=== PATIENT | male | born 1980 | race Caucasian/White ===

== ENCOUNTER → 2019-04-09 14:36 | Outpatient (CLI) | payer OTHER, SELFPAY ==
--- NOTE | 2019-04-09 14:39 | DI.RAD.S_ITS ---
PROCEDURE: XR SHOULDER RT MIN 2V INDICATIONS: Thoracic strain, lumbar strain, R shoulder pain. TECHNIQUE: 3 views of the shoulder were acquired. COMPARISON: None. FINDINGS: Bones: No fractures or dislocations. No suspicious bony lesions. Visualized ribs appear intact. Soft tissues: No suspicious soft tissue calcifications. Visualized right hemithorax is clear. IMPRESSION: No fracture or dislocation. Dictated by: Bairon Miller M.D. on 04/09/2019 at 17:24 Approved by: Bairon Miller M.D. on 04/09/2019 at 17:25
--- NOTE | 2019-04-09 14:39 | DI.RAD.S_ITS ---
PROCEDURE: XR THORACIC SPINE 3V INDICATIONS: Thoracic strain, lumbar strain, R shoulder pain. TECHNIQUE: 3 views of the thoracic spine were acquired. COMPARISON: None. FINDINGS: Bones: No fractures or dislocations. No suspicious bony lesions. 12 pairs of ribs are noted, and appear intact where visualized. Soft tissues: No paravertebral stripe thickening. IMPRESSION: No acute osseous abnormality. Dictated by: Bairon Miller M.D. on 04/09/2019 at 17:20 Approved by: Bairon Miller M.D. on 04/09/2019 at 17:23
--- NOTE | 2019-04-09 14:39 | DI.RAD.S_ITS ---
PROCEDURE: XR LUMBAR SPINE 2-3V INDICATIONS: Thoracic strain, lumbar strain, R shoulder pain. TECHNIQUE: 3 views of the lumbar spine were acquired. COMPARISON: Same date thoracic spine radiographs. FINDINGS: Bones: 5 [id number] vertebrae are present. There is normal bony alignment. No vertebral body compression fractures. No suspicious bony lesions. Soft tissues: Overlying bowel gas pattern is normal. No suspicious soft tissue calcifications. IMPRESSION: No acute osseous abnormality. Dictated by: Bairon Miller M.D. on 04/09/2019 at 17:23 Approved by: Bairon Miller M.D. on 04/09/2019 at 17:24
== END ==
PROVIDERS: PCP Family Medicine; Visit Provider Family Medicine
DX: M25.511 Pain in right shoulder (principal); S29.019A Strain of muscle and tendon of unspecified wall of thorax, initial encounter; S39.012A Strain of muscle, fascia and tendon of lower back, initial encounter
CPT/HCPCS: 72072; 72100; 73030

== ENCOUNTER → 2019-07-06 12:18 | Outpatient (CLI) | payer OTHER, SELFPAY ==
--- NOTE | 2019-07-06 12:20 | DI.RAD.S_ITS ---
PROCEDURE: XR WRIST LT MIN 3V INDICATIONS: left wrist pain TECHNIQUE: 4 views of the wrist were acquired. COMPARISON: None. FINDINGS: Bones: No fractures or dislocations. No suspicious bony lesions. Multiple ossicles projecting at the ulnar styloid although radiographically these appear nonacute. Differential includes loose bodies. First CMC and triscaphe joint degeneration Scaphoid view: No fracture identified Soft tissues: No suspicious soft tissue calcifications. IMPRESSION: No definite acute fracture. If the patient's pain or other symptoms persist, consider further evaluation with MRI Multiple ossicles project adjacent the ulnar styloid however these appear chronic. Please correlate clinically. Dictated by: George Dumont M.D. on 07/06/2019 at 15:40 Approved by: George Dumont M.D. on 07/06/2019 at 15:42
== END ==
PROVIDERS: PCP Family Medicine; Visit Provider Nurse Practitioner Family
DX: M25.532 Pain in left wrist (principal); M18.12 Unilateral primary osteoarthritis of first carpometacarpal joint, left hand
CPT/HCPCS: 73110

== ENCOUNTER 2020-07-18 08:41 | Emergency (ER) | payer OTHER, SELFPAY ==
[2020-07-18 08:52] VITALS: BP 145/90; PULSE 69; RESP 18; TEMP 36.5; O2SAT 97; BMI 29.2
--- NOTE | 2020-07-18 09:01 | ED_ITS ---
HPI - Headache General Chief Complaint: Headache Stated Complaint: possible exposure to covid/bad cough since tue Time Seen by Provider: 07/18/20 08:52 Source: patient Mode of arrival: Ambulatory Limitations: no limitations History of Present Illness HPI Narrative: This is a 40-year-old male who comes with exposure to possible COVID. 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 Patient developed symptoms on Tuesday, 3 days ago with cough which has been productive with yellowish sputum. Patient has not had fevers that he is aware of but has had chills starting today. Some mild nausea. No vomiting. No chest pain except when he is coughing hard. He does not have any shortness of breath. No other GI or urinary symptoms. He has been self isolating. He does take lisinopril for hypertension and a antidepressant. He was smoking a cigar daily until recently. Related Data Home Medications Medication Instructions Recorded Confirmed cholecalciferol (vitamin D3) 25 1,000 unit PO DAILY 12/26/18 07/16/20 mcg (1,000 unit) capsule glucosamine marcelino dipot-chond marcelino tab PO tab 12/26/18 07/16/20 sod-C-Mn 750 mg-600 mg-99 mg-5 mg tablet Previous Rx's Medication Instructions Recorded lisinopril 20 mg tablet 20 mg PO DAILY #90 tab 12/26/18 lidocaine 5 % topical patch 1 patch TOP DAILY #15 each 04/22/20 sertraline 100 mg tablet 100 mg PO DAILY #90 tab 04/22/20 albuterol sulfate 2 inh INHALATION Q4H PRN #1 ea 07/18/20 benzonatate [Tessalon Perles] 100 mg PO Q6H PRN #20 cap 07/18/20 Allergies Allergy/AdvReac Type Severity Reaction Status Date / Time hydrocodone [HYDROCODONE] Allergy Unknown Verified 07/16/20 13:58 Review of Systems Review of Systems ROS Unobtainable: All systems reviewed & are unremarkable except as noted in HPI and below Patient History Medical History Anxiety (~2001) Back stiffness Carpal tunnel syndrome (~2001) Cervical somatic dysfunction Chronic back pain (~2003) Chronic right shoulder pain (~1999) Cranial somatic dysfunction Depression (~2001) Fractures (~2008) Headache (~1998) Hearing loss Hemorrhoids (~2004) History of posttraumatic stress disorder (PTSD) (~1998) Hypertension (~1999) Lumbar region somatic dysfunction Neck stiffness Pelvic somatic dysfunction Right carpal tunnel syndrome Sacral region somatic dysfunction Sacroiliac joint stiffness Segmental and somatic dysfunction of abdomen and other regions Sleep apnea (~2011) Somatic dysfunction of lower extremity Strain of right deltoid muscle Substance abuse (~2001) Thoracic region somatic dysfunction Tinnitus (~2004) Upper extremity somatic dysfunction Surgical History Anesthesia H/O wisdom tooth extraction (~1995) H/O: knee surgery (~2002) History of ankle surgery (~2010) Family History (Updated 03/31/20 @ 19:52 by Cande Nair) Mother Overdose Grandfather History of heart disease Hypertension Mental health problem Stroke Grandmother Cancer Social History Smoking Status: Current some day smoker Tobacco: How many years used: 27 alcohol intake: current Smoking Status: Current some day smoker tobacco type: cigars alcohol intake frequency: a few times a month Substance Use Type: does not use Exam Narrative Exam Narrative: GENERAL: Alert and oriented x three, well-nourished male in mild distress. HEENT: Head normocephalic, atraumatic, EOMI, pupils reactive, face symmetric, moist mucous membranes NECK: Supple, full range of motion CARDIOVASCULAR: Regular rate and rhythm without murmurs, rubs or gallops. No tachycardia noted. RESPIRATORY: Breath sounds equal bilaterally slightly decreased bilaterally, no wheezes rales or rhonchi. No tachypnea accessory muscle use. Patient does have significant cough in the room. Nonproductive in the room. ABDOMEN: Soft, nontender. Normoactive bowel sounds all 4 quadrants. No guarding or rebound, rigidity, no mass : No CVA tenderness EXTREMITIES: Normal range of motion, no clubbing or edema. Neurovascularly intact NEUROLOGICAL: Cranial nerves II through XII grossly intact. Moving all extremities SKIN: Warm, dry, no petechiae, no rashes or lesions. Initial Vital Signs Initial Vital Signs: Vital Signs Temperature 97.7 F 07/18/20 08:52 Pulse Rate 69 07/18/20 08:52 Respiratory Rate 18 07/18/20 08:52 Blood Pressure 145/90 H 07/18/20 08:52 Pulse Oximetry 97 07/18/20 08:52 Course Orders Ordered: ED Orders 07/18/20 09:09 XR chest 1V Stat 07/18/20 09:15 COVID19 Stat Reevaluation(s) Reevaluation #1: Patient updated, chest x-ray is negative, coronavirus 19 test is negative. Patient recommended to continue to self isolate. Discussed doing and antitussives. He had bug crawling on him like sensation with narcotics in the so will defer any codeine and use Tessalon Perles. Also offered an albuterol inhaler if he finds this helpful. He did not have any wheezing on exam but some patients will have some bronchospasm. Chest x-ray being negative no plan to start antibiotics at this time but patient is to return if he is feeling worse. Time: 10:18 Vital Signs Vital signs: Vital Signs - 8 hr 07/18/20 08:52 07/18/20 10:25 Temperature 97.7 F Pulse Rate 69 69 Respiratory Rate 18 16 Blood Pressure 145/90 H 122/75 Pulse Oximetry 97 98 MDM - Headache Lab Data Labs: Lab Results 07/18/20 Range/Units 09:15 COVID-19 PCR Negative (Negative) Imaging Data Chest x-ray: Radiologist's Impression: [address] [id number] ReportSigned Patient: Lex Soler EMR#: [id number]: [id number]:[id number]/Sex: 40 / MDate of Service: 07/18/20Loc: EDAccession Number: [id number] Procedure: XR chest 1V Ordering Provider: Enma Brody D.O. PROCEDURE: XR CHEST 1V INDICATIONS: flu-like symptoms TECHNIQUE: One view of the chest was acquired. COMPARISON: None. FINDINGS: Surgical changes and devices: None. Lungs and pleura: Lungs are clear. No pleural effusions or pneumothorax. Mediastinum: Mediastinal contours appear normal. Heart size is normal. Bones and chest wall: No suspicious bony lesions. Overlying soft tissues appear unremarkable. IMPRESSION: Portable chest within normal limits. No focal infiltrates are seen. If there is clinical concern for a developing pulmonary process, a short-term followup chest series (with PA and lateral views, performed in deep inspiration) is suggested for further evaluation. Dictated by: Shon Alvarez M.D. on 07/18/2020 at 8:28 Approved by: Shon Alvarez M.D. on 07/18/2020 at 8:29 Discharge Plan Departure Patient Disposition: Home Clinical Impression: Bronchitis Instructions: Acute Bronchitis Activity Restrictions/Additional Instructions: Your coronavirus 19 test today is negative. I would recommend continuing to self isolate. Take cough medicine as prescribed. You may use inhaler 1-2 puffs every 4 hours as needed if you find this helpful. You may also take Tylenol and/or ibuprofen as needed for symptoms. *What to do: * per recommendations from the CDC and the [facility] Department of Health * stay home except to get medical care. Restrict activities outside your home, except for getting medical care. Do not go to work, school, or public areas. Avoid using public transportation, ride sharing, or taxis. * separate yourself from other people in your home. * call ahead before visiting your doctor * Wear a face mask * Cover your coughs and sneezes * Clean your hands often * Avoid sharing household items * Clean all high-touch services every day * Monitor your symptoms and seek prompt medical attention if your illness is worsening, particularly with difficulty in breathing. Discussed continuing home isolation * for individuals with symptoms who are confirmed or suspected cases of COVID-19 and are directed to care for themselves at home, discontinue home isolation under the following conditions: 1. At least 72 hours have passed since recovery, defined as resolution of fever without the use of fever reducing medications, and improvement in respiratory symptoms (cough, shortness of breath) AND, 2. At least 7 days have passed since symptoms 1st appeared Individuals with laboratory confirmed COVID-19 who have not had any symptoms may discontinue home isolation when at least 7 days have passed since the date of their 1st COVID-19 diagnostic test and have had no subsequent illness Prescriptions: New benzonatate [Tessalon Perles] 100 mg capsule 100 mg PO Q6H PRN (Reason: cough) Qty: 20 RF: 0 albuterol sulfate 90 mcg/actuation aerosol powdr breath activated 2 inh inhalation Q4H PRN (Reason: shortness of breath or wheezing) Qty: 1 RF: 0 No Action cholecalciferol (vitamin D3) 1,000 unit capsule 1,000 unit PO DAILY RF: 0 glucosam marcelino uji-tvyopfhpj-C-Mn 422-274-49-5 mg tablet PO RF: 0 lisinopril 20 mg tablet 20 mg PO DAILY Qty: 90 RF: 0 sertraline [Zoloft] 100 mg tablet 100 mg PO DAILY Qty: 90 RF: 1 lidocaine 5 % adhesive patch,medicated 1 patch TOP DAILY Qty: 15 RF: 1 Referrals: Enrique Leija DO [Primary Care Provider] -
--- NOTE | 2020-07-18 09:09 | DI.RAD.S_ITS ---
PROCEDURE: XR CHEST 1V INDICATIONS: flu-like symptoms TECHNIQUE: One view of the chest was acquired. COMPARISON: None. FINDINGS: Surgical changes and devices: None. Lungs and pleura: Lungs are clear. No pleural effusions or pneumothorax. Mediastinum: Mediastinal contours appear normal. Heart size is normal. Bones and chest wall: No suspicious bony lesions. Overlying soft tissues appear unremarkable. IMPRESSION: Portable chest within normal limits. No focal infiltrates are seen. If there is clinical concern for a developing pulmonary process, a short-term followup chest series (with PA and lateral views, performed in deep inspiration) is suggested for further evaluation. Dictated by: Shon Alvarez M.D. on 07/18/2020 at 8:28 Approved by: Shon Alvarez M.D. on 07/18/2020 at 8:29
[2020-07-18 09:57] LABS: COVID19 -Nasal RAPID Negative (Negative)
[2020-07-18 10:25] VITALS: BP 122/75; PULSE 69; RESP 16; O2SAT 98
== END 2020-07-18 10:32 | disposition home or self-care (01) ==
PROVIDERS: Emergency Provider Emergency Medicine; PCP Family Medicine
DX: J40 Bronchitis, not specified as acute or chronic (principal); R05 Cough; R11.0 Nausea
CPT/HCPCS: 71045; 87635; 99283

== ENCOUNTER 2021-04-17 15:56 | Emergency (ER) | payer OTHER, SELFPAY ==
[2021-04-17 15:50] VITALS: BP 167/86; PULSE 71; RESP 24; TEMP 36.7; O2SAT 98; BMI 30.9
--- NOTE | 2021-04-17 16:05 | DI.RAD.S_ITS ---
PROCEDURE: XR CLAVICLE RT INDICATIONS: right shoulder pain TECHNIQUE: 2 views of the clavicle were acquired. COMPARISON: None. FINDINGS: Bones: Comminuted fracture of the right humeral head and neck. No suspicious bony lesions. Mild right acromioclavicular joint osteoarthritis. Soft tissues: No suspicious soft tissue calcifications. IMPRESSION: Proximal right humerus fracture. Dictated by: Nicolasa August MD, PhD on 04/17/2021 at 16:28 Approved by: Nicolasa August MD, PhD on 04/17/2021 at 16:29
--- NOTE | 2021-04-17 16:05 | DI.RAD.S_ITS ---
PROCEDURE: XR SHOULDER RT MIN 2V INDICATIONS: right shoulder pain TECHNIQUE: 3 comminuted proximal right humerus fracture. Three views of the shoulder were acquired. COMPARISON: [facility], CR, XR SHOULDER RT MIN 2V, 04/09/2019, 14:55. FINDINGS: Bones: Comminuted fracture of the right humeral head and neck. Soft tissues: No suspicious soft tissue calcifications. IMPRESSION: Comminuted proximal right humerus fracture. Dictated by: Nicolasa August MD, PhD on 04/17/2021 at 16:29 Approved by: Nicolasa August MD, PhD on 04/17/2021 at 16:31
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
[2021-04-17] MEDS: MORPHINE 2 MG/ML INJ IV (16:10)
--- NOTE | 2021-04-17 16:41 | DI.CT.S_ITS ---
PROCEDURE: CT UE RT WO CON INDICATIONS: proximal humerous fracture and? TECHNIQUE: Helical axial CT of the right proximal humerus was obtained and reconstructed in orthogonal planes COMPARISON: None. FINDINGS: There is a comminuted fracture of the proximal humerus extending through the proximal metaphysis and greater tuberosity. Minimal displacement of the greater tuberosity fracture fragment present. The articular surface is preserved. There is glenohumeral joint space narrowing. Scapula and clavicle are unremarkable. Mild degenerative changes noted involving the acromioclavicular joint. Overlying soft tissue swelling and edema present predominantly in the deltoid and adjacent fascial planes. Right lung apex is clear. No pneumothorax. IMPRESSION: Comminuted fracture of the proximal humerus involving the metaphysis and greater tuberosity. No evidence of intra-articular involvement. Approved by: Boom Rapp M.D. on 04/17/2021 at 16:46
[2021-04-17 17:00] VITALS: BP 145/98; PULSE 74; O2SAT 99
[2021-04-17] MEDS: MORPHINE 4 MG/ML INJ IV (17:07)
--- NOTE | 2021-04-17 17:29 | PC.NURSE ---
Pt reports pain at site of EMS start IV. IV removed per pt request. New access obtained on L forearm, 20g IV
[2021-04-17 17:30] VITALS: PULSE 81; RESP 20; O2SAT 98
[2021-04-17 18:31] VITALS: BP 137/89; PULSE 73; O2SAT 97
== END 2021-04-17 18:42 | disposition home or self-care (01) ==
PROVIDERS: Emergency Provider Physician Assistant; PCP Family Medicine
DX: S42.201A Unspecified fracture of upper end of right humerus, initial encounter for closed fracture (principal); V97.0XXA Occupant of aircraft injured in other specified air transport accidents, initial encounter; Y99.0 Civilian activity done for income or pay
CPT/HCPCS: 73000; 73030; 73200; 96374; 96376; 99284; 99285; J2270

== ENCOUNTER → 2021-09-16 08:21 | Outpatient (CLI) | payer OTHER, SELFPAY ==
--- NOTE | 2021-09-16 | DI.MRI.S_ITS ---
PROCEDURE: MR SHOULDER RT W CON INDICATIONS: Evaluation for pain after malunion TECHNIQUE: After the administration of 12 mL of dilute intra-articular Gadolinium contrast, oblique coronal T1 and T2 spin echo with fat saturation, oblique sagittal T1 spin echo with and without fat saturation, oblique sagittal T2 fast spin echo with fat saturation, axial T1 spin echo with fat saturation through the shoulder. COMPARISON: [facility], CT, CT UE RT WO CON, 04/17/2021, 17:23. [facility] [place], CR, XR SHOULDER 2+ VIEWS RIGHT, 08/24/2021, 11:16. FINDINGS: Image quality: Excellent. Rotator cuff: Mild T2 signal elevation diffusely throughout the supraspinatus and infraspinatus tendons at the humeral insertion sites, extending the musculotendinous junctions, indicating tendinopathy. Superimposed moderate grade intrasubstance and articular surface tearing of the anterior supraspinatus tendon at the humeral insertion site. Low-grade partial-thickness intrasubstance tearing of the mid and posterior supraspinatus, as well as the anterior infraspinatus tendons at the humeral insertion sites. Subscapularis demonstrates low-grade partial-thickness intrasubstance tearing superiorly at the humeral insertion site extending to the musculotendinous junction. No rotator cuff atrophy. Bones and bursae: Healed fracture deformity of the humeral head and neck is present. No bone marrow contusions nor acute fractures. Moderate acromioclavicular joint degeneration. The acromion demonstrates conventional anatomy, without an os acromiale. Capsule and soft tissues: The labrum and glenohumeral ligaments appear intact. The long head of the biceps tendon demonstrates normal location and partial-thickness tearing. The rotator interval appears normal, without fibrosis. The coracohumeral ligament is of normal thickness. No intra-articular bodies. IMPRESSION: 1. Supraspinatus and infraspinatus tendinopathy. 2. Superimposed moderate grade tearing of the anterior supraspinatus. Low-grade tearing of the remainder of the supraspinatus and anterior infraspinatus tendons. 3. Low-grade tearing of the subscapularis tendon. 4. Acromioclavicular joint osteoarthritis. 5. Partial thickness biceps tendon tear. Dictated by: Joleen Martinez M.D. on 09/16/2021 at 10:02 Approved by: Joleen Martinez M.D. on 09/16/2021 at 10:05
--- NOTE | 2021-09-16 | DI.RAD.S_ITS ---
PROCEDURE: FL SHOULDER INJECTION MR/CT RT INDICATIONS: Evaluation for pain after malunion COMPARISON: [facility] [place], CR, XR SHOULDER 2+ VIEWS RIGHT, 08/24/2021, 11:16. TECHNIQUE: The indications, alternatives, benefits, risks, and complications of the procedure were explained to the patient. Written informed consent was obtained and placed in the chart. The shoulder was examined fluoroscopically and a site for needle placement chosen for entry into the glenohumeral joint from an anterior approach. The skin was prepped and draped in a sterile fashion, and 1% lidocaine infiltrated from skin down to joint capsule. A spinal needle was inserted into the glenohumeral joint, and a small amount of iodinated contrast media injected to confirm intra-articular placement of the needle tip. This was followed by approximately 12 mL dilute solution of a gadolinium containing MR contrast agent. The needle was removed and a dressing was applied. The patient was given postprocedural instructions and sent to the MR suite for MR imaging. FINDINGS: A single fluoroscopic spot image demonstrates intra-articular location of injected iodinated contrast. IMPRESSION: Successful fluoroscopically guided administration of dilute Gadolinium solution into the shoulder joint for MR arthrogram. Dictated by: Nona Zheng M.D. on 09/16/2021 at 9:52 Approved by: Nona Zheng M.D. on 09/16/2021 at 9:53
== END ==
PROVIDERS: Referring Provider Orthopaedic Surgery; Visit Provider Orthopaedic Surgery
DX: S42.291D Other displaced fracture of upper end of right humerus, subsequent encounter for fracture with routine healing (principal); S46.111A Strain of muscle, fascia and tendon of long head of biceps, right arm, initial encounter; M19.011 Primary osteoarthritis, right shoulder; S46.011A Strain of muscle(s) and tendon(s) of the rotator cuff of right shoulder, initial encounter
CPT/HCPCS: 23350; 73222; 77002

== ENCOUNTER 2021-10-16 07:54 | Emergency (ER) | payer OTHER, SELFPAY ==
[2021-10-16] VITALS (12 sets, daily range): BP systolic 127–165; BP diastolic 74–100; PULSE 68–84; RESP 18–25; TEMP 36.6; O2SAT 94–100; BMI 29.8
--- NOTE | 2021-10-16 08:13 | ED.DIZZY ---
HPI - Dizziness General Chief Complaint: Dizziness Stated Complaint: dizzy spells 4 days Time Seen by Provider: 10/16/21 08:10 History of Present Illness HPI Narrative: Patient complains of dizziness for the past 4 days. Worse at nighttime. Worse with movement and positional changes. Occasional nausea. Occasionally has slight headache. No numbness tingling weakness. No slurred speech or facial droop. Patient denies any unusual stress in life. Patient is on blood pressure medication. Three weeks ago he states his blood pressure usually ran 120/70. 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 At nighttime his dizziness is worse. His diastolic has been elevated above 100. This morning dizziness persisted. He did have some memory lapse forgetting to pack his son's lunch. That is atypical for him. He is uncertain about family history of heart attack and strokes or high blood pressure. No chest pain no palpitations. No dyspnea. No black or bloody stools. Did have some blood pressure medication changes recently. They were concerned that his blood pressure was running too low. Related Data Home Medications Medication Instructions Recorded Confirmed cholecalciferol (vitamin D3) 25 1,000 unit PO DAILY 12/26/18 08/01/20 mcg (1,000 unit) capsule glucosamine marcelino dipot-chond marcelino tab PO tab 12/26/18 08/01/20 sod-C-Mn 750 mg-600 mg-99 mg-5 mg tablet Previous Rx's Medication Instructions Recorded lisinopril 20 mg tablet 20 mg PO DAILY #90 tab 12/26/18 lidocaine 5 % topical patch 1 patch TOP DAILY #15 each 04/22/20 sertraline 100 mg tablet (Zoloft) 100 mg PO DAILY #90 tab 04/22/20 albuterol sulfate 90 mcg/actuation 2 inh INHALATION Q4H PRN #1 ea 07/18/20 breath activated powder inhaler benzonatate 100 mg capsule 100 mg PO Q6H PRN #20 cap 07/18/20 (Tessalon Perles) hydroxyzine pamoate 25 mg capsule 25 mg PO BID PRN #60 cap 08/08/20 (Vistaril) oxycodone 5 mg capsule 5 mg PO TID PRN #20 cap 04/17/21 Allergies Allergy/AdvReac Type Severity Reaction Status Date / Time hydrocodone [HYDROCODONE] Allergy Unknown Verified 08/08/20 15:26 Review of Systems Review of Systems Narrative: GENERAL: Denies chills, fatigue, malaise, fever, sweats. HEENT: Denies sinus pain, ear pain, sore throat RESPIRATORY: Denies dyspnea, cough CARDIOVASCULAR: Denies chest pain, palpitations GASTROINTESTINAL: Denies nausea, vomiting, abdominal pain : Denies dysuria, frequency, hematuria MUSCULOSKELETAL: denies muscle or bony pain SKIN: Denies rash, skin lesions NEUROLOGIC: Denies weakness, numbness, positive for dizziness ROS Unobtainable: All systems reviewed & are unremarkable except as noted in HPI and below Patient History Medical History Anxiety (~2001) Back stiffness Carpal tunnel syndrome (~2001) Cervical somatic dysfunction Chronic back pain (~2003) Chronic right shoulder pain (~1999) Cranial somatic dysfunction Depression (~2001) Fractures (~2008) Ganglion cyst of dorsum of left wrist Headache (~1998) Hearing loss Hemorrhoids (~2004) History of posttraumatic stress disorder (PTSD) (~1998) Hypertension (~1999) Insomnia Lumbar region somatic dysfunction Neck stiffness Pelvic somatic dysfunction Posttraumatic stress disorder Right carpal tunnel syndrome Sacral region somatic dysfunction Sacroiliac joint stiffness Segmental and somatic dysfunction of abdomen and other regions Sleep apnea (~2011) Somatic dysfunction of lower extremity Strain of right deltoid muscle Substance abuse (~2001) Thoracic region somatic dysfunction Tinnitus (~2004) Upper extremity somatic dysfunction Surgical History Anesthesia H/O wisdom tooth extraction (~1995) H/O: knee surgery (~2002) History of ankle surgery (~2010) Family History Mother Overdose Grandfather History of heart disease Hypertension Mental health problem Stroke Grandmother Cancer Social History Smoking Status: Former smoker Tobacco: How many years used: 27 alcohol intake: current Smoking Status: Former smoker tobacco type: cigars alcohol intake frequency: a few times a month Substance Use Type: does not use Exam Narrative Exam Narrative: GENERAL: in no distress, not toxic not dyspneic HEAD: Normocephalic. EYES: Pupils equal round No scleral icterus. ENT: Mucous membranes moist. NECK: Trachea midline. No carotid bruit CARDIOVASCULAR: Regular rate and rhythm without murmurs RESPIRATORY: Clear to auscultation. Breath sounds equal bilaterally. No wheezes, rales, or rhonchi. GASTROINTESTINAL: Abdomen soft, non-tender EXTREMITIES: No gross deformities. BACK: No flank tenderness. NEURO: AOx4. 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 Negative pronator drift. Patient has steady gait in hallway unassisted. On [place] is unsteady with eyes closed. Increased dizziness with changes in horizontal gaze. Increased dizziness with getting up out of bed and standing up. SKIN: Warm and dry PSYCH: Not anxious, is cooperative Initial Vital Signs Initial Vital Signs: Vital Signs Pulse Rate 84 10/16/21 08:06 Blood Pressure 165/100 H 10/16/21 08:06 Pulse Oximetry 98 10/16/21 08:06 Course Course Course Narrative: No new issues during course of stay Orders Ordered: ED Orders 10/16/21 08:10 EKG-12 Lead Stat 10/16/21 08:24 Complete Blood Count AUTO DIFF Stat Comprehensive Metabolic Panel Stat Troponin I Stat 10/16/21 09:10 CT angio head and neck Stat 10/16/21 10:53 MR head/brain wo con Stat Discontinued Medications Sodium Chloride (Normal Saline 0.9%) 500 mls @ 1,000 mls/hr IV BOLUS ONE Stop: 10/16/21 08:39 Last Infusion: 10/16/21 10:00 Dose: 0 mls/hr Documented by: Admin: 10/16/21 08:37 Dose: 1,000 mls/hr Documented by: YG Meclizine HCl (Meclizine Hcl 12.5 Mg Tablet) 50 mg PO NOW ONE Stop: 10/16/21 08:19 Last Admin: 10/16/21 08:36 Dose: 50 mg Documented by: YG Reevaluation(s) Reevaluation #1: Blood pressure improved. 138/84. No blood pressure medication given. However no changes with 50 mg of Antivert. Still dizzy with changing position. No dizziness while lying still. Has been up and going to the bathroom. Still feeling dizzy when up and walking. Reviewed results with patient. So far laboratory studies and imaging are reassuring. 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 Likely blood pressure not related to dizziness. Patient still symptomatic with normal blood pressure here. They agree with follow[facility]up. [facility] I gave patient referral to Otolaryngology as possible source of dizziness, inner ear problem. No hearing changes or hearing loss. However balance center of the ear could be issue. Such as labyrinthitis. Appropriate for evaluation by ENT 1st. Patient not toxic. Return precautions reviewed with them. Time: 12:03 Consultations Consultation #1: Spoke with tele stroke neurologist, dr marshall, agrees with MRI without contrast and if normal patient can be discharged home and follow-up with neurology or with otolaryngology Time: 10:54 Vital Signs Vital signs: Vital Signs - 8 hr 10/16/21 08:06 10/16/21 08:12 10/16/21 08:30 Temperature 98 F Pulse Rate 84 82 81 Respiratory Rate 18 20 Blood Pressure 165/100 H 165/100 H 141/90 H Pulse Oximetry 98 97 98 10/16/21 09:00 10/16/21 09:19 10/16/21 09:30 Temperature Pulse Rate 82 72 74 Respiratory Rate 20 18 19 Blood Pressure 127/74 153/88 H Pulse Oximetry 98 100 99 10/16/21 10:00 10/16/21 10:30 10/16/21 11:21 Temperature Pulse Rate 70 76 79 Respiratory Rate 20 21 Blood Pressure 143/84 H 138/84 Pulse Oximetry 98 100 94 10/16/21 11:30 10/16/21 11:58 10/16/21 12:00 Temperature Pulse Rate 72 68 70 Respiratory Rate 24 25 H 19 Blood Pressure 130/85 Pulse Oximetry 99 98 98 MDM - Dizziness Differential Diagnosis Differential diagnosis: Likely benign paroxysmal positional vertigo, vertebral basilar insufficiency, cerebrovascular accident, acute vestibular neuronitis, transient cerebral ischemia and other (TIA/vertigo/hypertensive urgency) Lab Data Result diagrams: 10/16/21 08:24 10/16/21 08:24 Labs: Lab Results 10/16/21 10/16/21 Range/Units 08:24 08:24 WBC 8.5 (4.5-11.0) X10^3/uL RBC 5.02 (4.5-5.9) X10^6/uL Hgb 14.9 (13.5-17.5) g/dL Hct 43.8 (41-53) % MCV 87.4 (80-100) fL MCH 29.7 (26-34) PG MCHC 34.0 (30-36) % RDW 12.8 (11.6-14.8) % Plt Count 328 (150-400) X10^3/uL Neut % (Auto) 67.1 (50-75) % Lymph % (Auto) 20.6 L (25-40) % [place]k % (Auto) 8.7 (3-14) % Eos % (Auto) 3.3 (2-4) % Baso % (Auto) 0.3 (0-2) % Neut # (Auto) 5700 (9240-2997) /uL Lymph # (Auto) 1700 (4443-1531) /uL [place]k # (Auto) 700 (0-900) /uL Eos # (Auto) 300 (0-450) /uL Baso # (Auto) 0 (0-100) /uL Sodium 138 (137-145) mmol/L Potassium 4.1 (3.4-5.1) mmol/L Chloride 104 (98-107) mmol/L Carbon Dioxide 25 (22-32) mmol/L BUN 15 (9-20) mg/dL Creatinine 0.99 (0.66-1.25) mg/dL Estimated GFR > 60.0 (>60) mL/min BUN/Creatinine Ratio 15.2 (6-22) Glucose 107 H (70-100) mg/dL Calcium 9.6 (8.4-10.2) mg/dL Total Bilirubin 0.4 (0.2-1.3) mg/dL AST 35 (17-59) IU/L ALT 27 (<50) IU/L Alkaline Phosphatase 67 (38-126) U/L Troponin I < 0.012 (0.01-0.034) ng/mL Total Protein 8.2 (6.3-8.2) g/dL Albumin 4.9 (3.5-5.0) g/dL Globulin 3.3 (1.7-4.1) g/dL Albumin/Globulin Ratio 1.5 (1.0-2.8) Imaging Data CTA - brain/neck: Radiologist's Impression: [address] [address] [address] Scan Report Signed Patient: Lex Soler MR#: [id number] : 1980 Acct:[id number] Age/Sex: 41 / M Date of Service: 10/16/21 Loc: ED Accession Number: [id number] ?? Procedure: CT angio head and neck Ordering Provider: Zeus Gannon MD PROCEDURE:? CT ANGIO HEAD AND NECK ? INDICATIONS:? Dizziness/altered mental status ? TECHNIQUE:? Pre-contrast 4.5 mm thick sections acquired from the foramen magnum to the vertex.? After the administration of intravenous contrast, 1 mm thick sections acquired from the aortic arch through the [place].? Post-contrast 4.5 mm thick sections then re-acquired from the foramen magnum to the vertex.? 3-dimensional ufmnzvt-ryncmkzjm-amztnqnsur (MIP) and/or volume rendering reformats were acquired of the central intracranial vasculature and neck separately. ? COMPARISON:? None. ? FINDINGS:? Image quality:? Excellent.? ? BRAIN:? CSF spaces:? Ventricles are normal in size and shape.? Basal cisterns are patent.? No extra-axial fluid collections.? ? Brain:? No midline shift.? No intracranial bleeds or masses.? Silvestre-white matter interface appears intact.? ? Skull and face:? Calvarium and facial bones appear intact, without suspicious lesions.? Orbits appear normal.? ? Sinuses:? Sinuses and mastoids are clear.? ? HEAD CT ANGIOGRAPHY:? Anterior circulation:? Intracranial internal carotid arteries are normal in size and flow.? The flow within the paired anterior cerebral arteries is normal and symmetric.? The flow within the middle cerebral arteries is normal and symmetric.? The anterior communicating artery is seen.? No aneurysms are seen.? ? Posterior circulation:? Visualized portions of the vertebral arteries demonstrate normal caliber, and join to form a normal appearing basilar artery.? Flow within the posterior cerebral arteries is normal and symmetric.? No aneurysms are seen. ? Dural sinuses demonstrate normal postcontrast enhancement. ? ? NECK CT ANGIOGRAPHY:? Carotid system:? The great vessels demonstrate a conventional anatomy as they arise from the aortic arch.? The origins of the common carotid arteries appear patent.? The common carotid arteries demonstrate normal caliber and courses.? The bifurcation regions are both widely patent.? The internal carotid arteries demonstrate normal calibers and courses.? ? Posterior circulation:? The origins of the vertebral arteries both appear widely patent.? The more superior extracranial portions of both vertebral arteries also demonstrate normal courses and calibers.? They join to form a normal appearing basilar artery.? ? Soft tissues:? Visualized neck soft tissues demonstrate no suspicious abnormalities.? ? Bones:? No suspicious bony lesions.? Visualized cervical spine appears normally aligned.? IMPRESSION:? ? 1. No intracranial disease process. ? 2. No large vessel occlusion, vascular stenosis, vascular dissection or aneurysm. ? ? Any quantitative measurements of stenosis were performed using NASCET criteria.? ? ? Dictated by: Nicolasa August MD, PhD on 10/16/2021 at 9:44 ? ? Approved by: Nicolasa August MD, PhD on 10/16/2021 at 9:50 ? MRI brain: Radiologist's Impression: [place] [address] Magnetic Resonance Report Signed Patient: Lex Soler MR#: [id number] : 1980 Acct:[id number] Age/Sex: 41 / M Date of Service: 10/16/21 Loc: ED Accession Number: [id number] ?? Procedure: MR head/brain wo con Ordering Provider: Zeus Gannon MD PROCEDURE:? MR HEAD/BRAIN WO CON ? INDICATIONS:? Ataxia/dizziness/altered mental status ? TECHNIQUE:? Noncontrast axial T1 spin echo, axial T2 fast spin echo, sagittal and axial FLAIR, coronal T2 fast spin echo, axial gradient echo, axial diffusion and ADC through the brain.? ? COMPARISON:? [facility], CT, CT ANGIO HEAD AND NECK, 10/16/2021, 8:20. ? FINDINGS:? Image quality:? Excellent.? ? CSF Spaces:? Basal cisterns are patent.? No extra-axial fluid collections.? Ventricles are normal in size and shape.? ? Brain:? No intracranial masses or hemorrhage.? Silvestre/white matter interface is normal.? Brainstem appears normal.? Diffusion-weighted images demonstrate no acute ischemic insult.? No chronic ischemic insults.? Normal intravascular flow voids are present.? ? Skull and face:? Calvarium has normal marrow signal.? Orbits appear normal.? ? Sinuses:? Sinuses and mastoids are clear.? ? IMPRESSION:? No findings of acute or subacute infarction can be seen. ? No acute intracranial process is seen.? ? ? Dictated by: Shon Alvarez M.D. on 10/16/2021 at 10:44 ? ? Approved by: Shon Alvarez M.D. on 10/16/2021 at 10:45 ? ECG Data Interpretation: Normal sinus rhythm rate [address] elevation or depression MDM Narrative Medical decision making narrative: Appropriate for discharge home. Exam and laboratory studies and imaging are reassuring. I do review with tele stroke neurologist as well. Likely vertigo. Return precautions reviewed with patient and . They agree with treatment plan. ENT referral given. Not toxic at discharge. I do not believe the blood pressure is related to the dizziness. Patient was still symptomatic with normal blood pressure here. Discharge Plan Departure Patient Disposition: Home Clinical Impression: Vertigo, Hypertension Instructions: Essential Hypertension, DI for Vertigo Activity Restrictions/Additional Instructions: See family doctor next week for re-evaluation of your blood pressure medication. Be sure to continue home measurements of your blood pressure measurements in the morning at nighttime. Return if worse if any questions or concerns. Call provided otolaryngology office today to make appointment for your evaluation of dizziness. Prescriptions: No Action cholecalciferol (vitamin D3) 1,000 unit capsule 1,000 unit PO DAILY 0RF glucosam marcelino hnl-qzylnouzn-P-Mn [id number] mg tablet PO 0RF lisinopril 20 mg tablet 20 mg PO DAILY Qty: 90 0RF sertraline [Zoloft] 100 mg tablet 100 mg PO DAILY Qty: 90 1RF lidocaine 5 % adhesive patch,medicated 1 patch TOP DAILY Qty: 15 1RF Rx Instructions: leave on most painful area for up to 12 hrs hydroxyzine pamoate [Vistaril] 25 mg capsule 25 mg PO BID PRN (Reason: anxiety) Qty: 60 1RF benzonatate [Tessalon Perles] 100 mg capsule 100 mg PO Q6H PRN (Reason: cough) Qty: 20 0RF albuterol sulfate 90 mcg/actuation aerosol powdr breath activated 2 inh inhalation Q4H PRN (Reason: shortness of breath or wheezing) Qty: 1 0RF oxycodone 5 mg capsule 5 mg PO TID PRN (Reason: pain) Qty: 20 0RF Referrals: Skip Feng MD [Physician] - Surekha Maza MD [Primary Care Provider] -
[2021-10-16] MEDS: MECLIZINE HCL 12.5 MG TABLET 50 MG PO (08:36)
[2021-10-16] MEDS: SODIUM CHLORIDE 0.9% 500 ML 1000 ML IV (08:37)
--- NOTE | 2021-10-16 09:10 | DI.CT.S_ITS ---
PROCEDURE: CT ANGIO HEAD AND NECK INDICATIONS: Dizziness/altered mental status TECHNIQUE: Pre-contrast 4.5 mm thick sections acquired from the foramen magnum to the vertex. After the administration of intravenous contrast, 1 mm thick sections acquired from the aortic arch through the [place] of [place]. Post-contrast 4.5 mm thick sections then re-acquired from the foramen magnum to the vertex. 3-dimensional iqxbdsb-lmytofqqw-xzqrzmlqgu (MIP) and/or volume rendering reformats were acquired of the central intracranial vasculature and neck separately. COMPARISON: None. FINDINGS: Image quality: Excellent. BRAIN: CSF spaces: Ventricles are normal in size and shape. Basal cisterns are patent. No extra-axial fluid collections. Brain: No midline shift. No intracranial bleeds or masses. Silvestre-white matter interface appears intact. Skull and face: Calvarium and facial bones appear intact, without suspicious lesions. Orbits appear normal. Sinuses: Sinuses and mastoids are clear. HEAD CT ANGIOGRAPHY: Anterior circulation: Intracranial internal carotid arteries are normal in size and flow. The flow within the paired anterior cerebral arteries is normal and symmetric. The flow within the middle cerebral arteries is normal and symmetric. The anterior communicating artery is seen. No aneurysms are seen. Posterior circulation: Visualized portions of the vertebral arteries demonstrate normal caliber, and join to form a normal appearing basilar artery. Flow within the posterior cerebral arteries is normal and symmetric. No aneurysms are seen. Dural sinuses demonstrate normal postcontrast enhancement. NECK CT ANGIOGRAPHY: Carotid system: The great vessels demonstrate a conventional anatomy as they arise from the aortic arch. The origins of the common carotid arteries appear patent. The common carotid arteries demonstrate normal caliber and courses. The bifurcation regions are both widely patent. The internal carotid arteries demonstrate normal calibers and courses. Posterior circulation: The origins of the vertebral arteries both appear widely patent. The more superior extracranial portions of both vertebral arteries also demonstrate normal courses and calibers. They join to form a normal appearing basilar artery. Soft tissues: Visualized neck soft tissues demonstrate no suspicious abnormalities. Bones: No suspicious bony lesions. Visualized cervical spine appears normally aligned. IMPRESSION: 1. No intracranial disease process. 2. No large vessel occlusion, vascular stenosis, vascular dissection or aneurysm. Any quantitative measurements of stenosis were performed using NASCET criteria. Dictated by: Nicolasa August MD, PhD on 10/16/2021 at 9:44 Approved by: Nicolasa August MD, PhD on 10/16/2021 at 9:50
[2021-10-16 09:28] LABS: Add Manual Diff / Slide Review NO; Basophils Absolute Auto 0 /uL (0-100); Basophils Percent Auto 0.3 % (0-2); Eosinophils Absolute Auto 300 /uL (0-450); Eosinophils Percent Auto 3.3 % (2-4); Hematocrit 43.8 % (41-53); Hemoglobin 14.9 g/dL (13.5-17.5); Lymphocytes Absolute Auto 1700 /uL (1100-4500); Lymphocytes Percent Auto 20.6 % (25-40); Mean Corpuscular Hemoglobin 29.7 PG (26-34); Mean Corpuscular Volume 87.4 fL (80-100); Monocytes Absolute Auto 700 /uL (0-900); Monocytes Percent Auto 8.7 % (3-14); Neutrophils Absolute Auto 5700 /uL (1500-7000); Neutrophils Percent Auto 67.1 % (50-75); Platelet Count 328 X10^3/uL (150-400); Red Blood Cell Count 5.02 X10^6/uL (4.5-5.9); Red Cell Distribution Width 12.8 % (11.6-14.8); White Blood Cell Count 8.5 X10^3/uL (4.5-11.0)
[2021-10-16 09:37] LABS: Alanine Aminotransferase 27 IU/L (<50); Albumin 4.9 g/dL (3.5-5.0); Albumin Globulin Ratio 1.5 (1.0-2.8); Alkaline Phosphatase 67 U/L (38-126); Aspartate Aminotransferase 35 IU/L (17-59); BUN Creatinine Ratio 15.2 (6-22); Bilirubin Total 0.4 mg/dL (0.2-1.3); Blood Urea Nitrogen 15 mg/dL (9-20); Calcium 9.6 mg/dL (8.4-10.2); Carbon Dioxide 25 mmol/L (22-32); Chloride 104 mmol/L (98-107); Estimated Glomerular Filt Rate > 60.0 mL/min (>60); Globulin 3.3 g/dL (1.7-4.1); Glucose 107 mg/dL (70-100); HEMOLYSIS 15 (0-50); Potassium 4.1 mmol/L (3.4-5.1); Sodium 138 mmol/L (137-145); Total Protein 8.2 g/dL (6.3-8.2)
[2021-10-16 09:48] LABS: Troponin I < 0.012 ng/mL (0.01-0.034)
--- NOTE | 2021-10-16 10:53 | DI.MRI.S_ITS ---
PROCEDURE: MR HEAD/BRAIN WO CON INDICATIONS: Ataxia/dizziness/altered mental status TECHNIQUE: Noncontrast axial T1 spin echo, axial T2 fast spin echo, sagittal and axial FLAIR, coronal T2 fast spin echo, axial gradient echo, axial diffusion and ADC through the brain. COMPARISON: [facility], CT, CT ANGIO HEAD AND NECK, 10/16/2021, 8:20. FINDINGS: Image quality: Excellent. CSF Spaces: Basal cisterns are patent. No extra-axial fluid collections. Ventricles are normal in size and shape. Brain: No intracranial masses or hemorrhage. Silvestre/white matter interface is normal. Brainstem appears normal. Diffusion-weighted images demonstrate no acute ischemic insult. No chronic ischemic insults. Normal intravascular flow voids are present. Skull and face: Calvarium has normal marrow signal. Orbits appear normal. Sinuses: Sinuses and mastoids are clear. IMPRESSION: No findings of acute or subacute infarction can be seen. No acute intracranial process is seen. Dictated by: Shon Alvarez M.D. on 10/16/2021 at 10:44 Approved by: Shon Alvarez M.D. on 10/16/2021 at 10:45
--- NOTE | 2021-10-16 11:00 | PC.NURSE ---
still complains of dizziness. ataxia with walking. aware.l going for an MRI
== END 2021-10-16 12:12 | disposition home or self-care (01) ==
PROVIDERS: Emergency Provider Emergency Medicine; PCP Internal Medicine
DX: R42 Dizziness and giddiness (principal); I10 Essential (primary) hypertension; Z87.891 Personal history of nicotine dependence
CPT/HCPCS: 36415; 70496; 70498; 70551; 80053; 84484; 85025; 93005; 96360; 99284; 99285

== ENCOUNTER 2024-03-20 10:23 | Day surgery (SDC) | payer OTHER, SELFPAY ==
[2024-03-20] MEDS: LACTATED RINGERS 1,000 ML 42 ML IV (10:54)
[2024-03-20 10:55] VITALS: BMI 27.4
[2024-03-20 11:00] VITALS: BP 128/78; PULSE 75; RESP 16; TEMP 36.8; O2SAT 97
--- NOTE | 2024-03-20 11:25 | P.HP_ITS ---
History of Present Illness History of Present Illness Date Patient Seen: 03/20/24 Time Patient Seen: 11:25 Chief complaint: Colonoscopy Narrative: Does not know family history. No symptoms, here for first screening colonoscopy. [facility] Medical History Posttraumatic stress disorder Insomnia Ganglion cyst of dorsum of left wrist Sacroiliac joint stiffness Back stiffness Strain of right deltoid muscle Somatic dysfunction of lower extremity Segmental and somatic dysfunction of abdomen and other regions Cranial somatic dysfunction Right carpal tunnel syndrome Upper extremity somatic dysfunction Neck stiffness Sacral region somatic dysfunction Pelvic somatic dysfunction Lumbar region somatic dysfunction Cervical somatic dysfunction Thoracic region somatic dysfunction Hearing loss Sleep apnea (~2011) Substance abuse (~2001) History of posttraumatic stress disorder (PTSD) (~1998) Depression (~2001) Anxiety (~2001) Headache (~1998) Fractures (~2008) Chronic back pain (~2003) Carpal tunnel syndrome (~2001) Tinnitus (~2004) Hemorrhoids (~2004) Hypertension (~1999) Chronic right shoulder pain (~1999) Surgical History Anesthesia History of ankle surgery (~2010) H/O: knee surgery (~2002) H/O wisdom tooth extraction (~1995) Family History Mother Overdose Grandfather History of heart disease Hypertension Mental health problem Stroke Grandmother Cancer Social History household members: spouse Smoking Status: Former smoker Tobacco: How many years used: 27 alcohol intake: current Meds Home Medications and Allergies Home Medications Medication Instructions Recorded Confirmed Type cholecalciferol (vitamin D3) 25 1,000 unit PO DAILY 12/26/18 03/20/24 History mcg (1,000 unit) capsule glucosamine marcelino dipot-chond marcelino tab PO 12/26/18 08/01/20 History sod-C-Mn 750 mg-600 mg-99 mg-5 mg tablet lisinopril 20 mg tablet 20 mg PO DAILY #90 tabs 12/26/18 03/20/24 Rx lidocaine 5 % topical patch 1 patch topical DAILY #15 ea 04/22/20 03/20/24 Rx sertraline 100 mg tablet (Zoloft) 100 mg PO DAILY #90 tabs 04/22/20 08/01/20 Rx sodium,potassium,mag sulfates 17.5 See Rx Instructions PO .COMPLEX 02/09/24 Rx gram-3.13 gram-1.6 gram oral soln #354 mL (Suprep Bowel Prep Kit) escitalopram oxalate 5 mg tablet 5 mg PO DAILY 03/20/24 03/20/24 History tirzepatide (weight loss) 2.5 2.5 mg SUBCUT QWEEK 03/20/24 03/20/24 History mg/0.5 mL subcutaneous pen injector (Zepbound) Allergies Allergy/AdvReac Type Severity Reaction Status Date / Time hydrocodone [HYDROCODONE] Allergy Unknown Verified 03/20/24 11:06 Review of Systems Review of Systems ROS: Yes All systems reviewed with the patient and are negative except as otherwise documented Exam Vital Signs (past 8 hours): - 03/20/24 11:00 Temperature 98.3 F Pulse Rate 75 Respiratory Rate 16 Blood Pressure 128/78 Pulse Oximetry 97 Oxygen Delivery Method Room Air Oxygen Delivery Method Room Air Const General: cooperative, healthy appearing and comfortable [facility] Head: normocephalic and atraumatic Ears: hearing grossly normal bilaterally Eyes Sclera: sclerae normal Neck Neck: trachea midline and No JVD Resp Effort & Inspection: normal respiratory effort and able to speak in complete sentences Cardio Rate: regular rate Rhythm: regular rhythm GI Palpation: soft and No tender Skin General: turgor normal and No atrophy Neuro General: patient alert, patient awake and patient oriented x3 Cranial Nerves: tongue midline Psych Mental Status: mental status grossly normal Affect: normal affect Judgment: judgment good Assessment & Plan Assessment & Plan narrative: Here for colon cancer screening using colonoscopy with anesthesia Time-Based Coding :: [TOTAL MINUTES] spent with patient and on the chart (including review of chart, obtaining history, exam, reviewing outside data, placing orders, documenting exam and treatment plan, and counseling patient) on [DATE].
--- NOTE | 2024-03-20 11:36 | PM.OP.COLON ---
Operative Date/Time/Diagnoses Date of procedure: 03/20/24 Time of procedure: 11:37 Pre-op diagnosis: screening colonoscopy Post-op diagnosis: same Procedure & Clinicians Study performed: Colonoscopy with anesthesia Same procedure as scheduled: Yes Indications: Colon cancer screening Surgeon: Lillie Andrews Procedure Notes Procedure in detail: Preop diagnosis: Colon cancer screening Postop diagnosis: Same Operative procedure: Colonoscopy with anesthesia Surgeon: Lucrecia Andrews MD Findings: No polyps. He does have small diverticuli throughout the descending colon Procedure: Patient placed in a lateral position. Rectal exam performed showing normal tone no masses. Colonoscope inserted into the rectum and advanced to ileocecal valve with minimal difficulty. Insufflation extraction of the scope as the above findings. Retroflex was included. Impression: Normal colonoscopy. No polyps. He does have small scattered diverticuli of the descending colon Plan: Repeat colonoscopy in 10 years unless otherwise indicated by change in clinical condition Findings: divertiulosis Specimen(s): none sent Complications: none Post-procedure Recommendations: Colonoscopy in 10 years Follow up: as needed Disposition: PACU
[2024-03-20 11:56] VITALS: BP 100/65; PULSE 87; RESP 17; TEMP 36.3; O2SAT 95
[2024-03-20 12:01] VITALS: BP 97/64; PULSE 78; RESP 15; TEMP 36.3; O2SAT 96
[2024-03-20 12:06] VITALS: BP 107/74; PULSE 81; RESP 16; TEMP 36.3; O2SAT 97
[2024-03-20 12:10] VITALS: BP 110/75; PULSE 81; RESP 20; TEMP 36.4; O2SAT 96
== END 2024-03-20 12:25 | disposition home or self-care (01) ==
PROVIDERS: PCP Internal Medicine; Referring Provider Surgery; Visit Provider Surgery
PROC: 0DJD8ZZ Inspection of Lower Intestinal Tract, Via Natural or Artificial Opening Endoscopic (ICD-10-PCS; CPT 45378; principal; 2024-03-20 11:00)
DX: Z12.11 Encounter for screening for malignant neoplasm of colon (principal); K57.30 Diverticulosis of large intestine without perforation or abscess without bleeding
CPT/HCPCS: 45378; J2704